=== PATIENT | female | born 1950 | race Caucasian/White ===

== ENCOUNTER 2020-11-11 07:18 | Day surgery (SDC) | payer MEDICARE, BC ==
[2020-11-10 12:43] LABS: BASOPHILS # (AUTO) 0.1 X10'3 (0-0.2); BASOPHILS % (AUTO) 0.9 % (0-1); EOSINOPHILS # (AUTO) 0.2 X10'3 (0-0.9); EOSINOPHILS % (AUTO) 1.9 % (0-6); HEMATOCRIT 43.5 % (35.0-45.0); HEMOGLOBIN 14.8 g/dl (12.0-16.0); LYMPHOCYTES # (AUTO) 2.3 X10'3 (1.1-4.8); LYMPHOCYTES % (AUTO) 27.4 % (21-51); MEAN CORPUSCULAR HEMOGLOBIN 31.2 PG (27.0-31.0); MEAN CORPUSCULAR VOLUME 91.6 FL (78-98); MONOCYTES # (AUTO) 0.5 X10'3 (0-0.9); MONOCYTES % (AUTO) 5.3 % (2-12); NEUTROPHILS # (AUTO) 5.5 X10'3 (1.8-7.7); NEUTROPHILS % (AUTO) 64.5 % (42-75); PLATELET COUNT 202 X10'3 (140-440); RED BLOOD COUNT 4.75 X10'6 (4.20-5.60); RED CELL DISTRIBUTION WIDTH 14.1 % (11.5-14.5); WHITE BLOOD COUNT 8.5 X10'3 (4.5-11.0)
[2020-11-10 12:55] LABS: ALBUMIN 4.2 G/DL (3.4-5.0); ANION GAP 10 (8-16); BLOOD UREA NITROGEN 27 MG/DL (7-18); BUN/CREATININE RATIO 20.8 (6.6-38.0); CALCIUM 9.6 MG/DL (8.5-10.1); CHLORIDE 102 MMOL/L (99-107); GLUCOSE 121 MG/DL (70-104); POTASSIUM 4.6 MMOL/L (3.5-5.1); SODIUM 140 MMOL/L (135-145); TOTAL CARBON DIOXIDE 27.6 MMOL/L (24-32); eGFR 40 ML/MIN
[2020-11-10 12:58] LABS: PARTIAL THROMBOPLASTIN TIME 27 SECONDS (22-32)
[~2020-11-11] VITALS: Ht 152.4 cm; Wt 93.8 kg
[2020-11-11] VITALS (14 sets, daily range): BP systolic 94–155; BP diastolic 55–74
[~2020-11-11 07:18] MED LIST: ASPI-1053 PO; CARV-50 PO; CHOL2000 PO; CYAN-24 PO; HYDR-4069 PO; HYDR-4353 PO; LISI-644 PO; NIA500ERT PO; OMEG500C3 PO; SPIR25TA5 PO
[2020-11-11] MEDS ORDERED: acetylcysteine 200 MG/ml 4ml vial PO PRN (07:31)
[2020-11-11] MEDS ORDERED: LIDOcaine/PRILOcaine 5gm cream TP ONE (07:35)
[2020-11-11] MEDS ORDERED: LORazepam 0.5 MG tablet PO PRN (07:35)
[2020-11-11] MEDS ORDERED: diphenhydrAMINE 25mg capsule PO PRN (07:35)
[2020-11-11] MEDS ORDERED: sodium bicarbonate (8.4%) inj. 150 ML in dextrose 5%-water 1,000 ML IV ONE ×3 (07:35→11:00)
[2020-11-11] MEDS ORDERED: ROSU40TA22 PO (07:44)
[2020-11-11] MEDS ORDERED: MELA1TAB28 PO (07:50)
[2020-11-11] MEDS ORDERED: CHOL500050 PO (07:50)
[2020-11-11] MEDS ORDERED: CALCIUM (07:50)
[2020-11-11] MEDS ORDERED: B NATURAL PO (07:50)
[2020-11-11] MEDS ORDERED: TUMERIC PO (07:50)
[2020-11-11] MEDS ORDERED: VITAMIN B12 PO (07:50)
[2020-11-11] MEDS ORDERED: nitroGLYCERIN-Tridil 50MG/D5W 250 ML IV ONE (08:06)
[2020-11-11] MEDS ORDERED: iohexol 350 MG/ML 50ML vial IV ONE ×2 (08:06→09:39)
[2020-11-11] MEDS ORDERED: heparin 1,000unit/ml 10ml vial 10 ML ONE (08:06)
[2020-11-11] MEDS ORDERED: midazolam 1 mg/ML 2ml injection ONE (08:06)
[2020-11-11] MEDS ORDERED: fentaNYL/PF 50MCG/1 ML 2ML syringe ONE (08:06)
[2020-11-11] MEDS ORDERED: LIDOcaine 1% (10mg/ml)w/preservative injection 20ml MDV ONE (08:06)
[2020-11-11] MEDS ORDERED: iohexol 350MG/ML 100ml bottle IV ONE (08:06)
[2020-11-11] MEDS ORDERED: verapamil 2.5 mg/ml inj IV ONE (08:06)
== END 2020-11-11 14:55 | disposition home or self-care (01) ==
LOC: SSTAY O 07:18
PROVIDERS: ATTEND Internal Medicine Cardiovascular Disease
DX: R94.39 Abnormal result of other cardiovascular function study (principal); I25.10 Atherosclerotic heart disease of native coronary artery without angina pectoris; I11.0 Hypertensive heart disease with heart failure; I50.22 Chronic systolic (congestive) heart failure; E78.5 Hyperlipidemia, unspecified; E87.6 Hypokalemia; J44.9 Chronic obstructive pulmonary disease, unspecified; I42.0 Dilated cardiomyopathy; E66.9 Obesity, unspecified; Z68.41 Body mass index [BMI] 40.0-44.9, adult; Z79.82 Long term (current) use of aspirin; Z79.899 Other long term (current) drug therapy; Z98.890 Other specified postprocedural states; Z87.891 Personal history of nicotine dependence
CPT/HCPCS: 36415; 76937; 80048; 85025; 85610; 85730; 93005; 93458; 99152; 99153; C1769; C1894; J1644; J2001; J2250; J3010; Q9967; A4620; A6258; J3490